=== PATIENT | male | born 1950 | race Caucasian/White ===

== ENCOUNTER 2017-04-27 13:57 | Emergency (ER) | payer OTHER ==
[~2017-04-27] VITALS: Ht 175.3 cm; Wt 100.0 kg
[~2017-04-27 13:57] MED LIST: AMLO10TA55 PO; GABA-531 PO; HYDR12.530 PO; METF850T2 PO; METO50 PO; OMEP20CA10 PO; RANI150T7 PO
[2017-04-27 14:12] LABS: GLUCOSE,POINT OF CARE 162 MG/DL (70-110)
[2017-04-27] MEDS ORDERED: NITROGLYCERIN 0.4 MG SUBLINGUAL TABLET #25 SL ONE (14:45)
[2017-04-27] MEDS ORDERED: GLUCAGON,HUMAN RECOMBINANT 1 MG VIAL IVP ONE ×2 (14:45→16:15)
[2017-04-27] MEDS ORDERED: ONDANSETRON HCL 4 MG/2 ML VIAL IVP ONE (14:45)
[2017-04-27] MEDS ORDERED: DONNATAL/LIDOCAINE/MAALOX 55 ML BOTTLE PO ONE (15:30)
[2017-04-27] MEDS ORDERED: SODIUM CHLORIDE 0.9% 1,000 ML IV ONE (18:45)
[2017-04-27] MEDS ORDERED: NALOXONE HCL 0.4 MG/ML VIAL ONE (19:13)
[2017-04-27] MEDS ORDERED: SODIUM CHLORIDE 0.9% 0 ML IV ONE (19:13)
[2017-04-27] MEDS ORDERED: FLUMAZENIL 0.1 MG/ML 5 ML VIAL IVP ONE (19:13)
[2017-04-27] MEDS ORDERED: EPINEPHrine 1:10,000 [1 MG/10 ML] SYRINGE ONE (19:13)
[2017-04-27] MEDS ORDERED: DiphenhydrAMINE HCL 50 MG/ML VIAL ONE (19:14)
[2017-04-27] MEDS ORDERED: MIDAZOLAM HCL 5 MG/ML VIAL ONE (19:14)
[2017-04-27] MEDS ORDERED: FentaNYL CITRATE-PF 100 MCG/2 ML VIAL ONE (19:14)
[2017-04-27] MEDS ORDERED: SODIUM TETRADECYL SULFATE 3% 60 MG/2 ML VIAL IVP ONE (19:14)
[2017-04-27] MEDS ORDERED: ATROPINE SULFATE 0.1 MG/ML 10 ML SYRINGE IVP ONE (19:14)
[2017-04-27 20:17] VITALS: BP 117/57
== END 2017-04-27 20:23 | disposition home or self-care (01) ==
LOC: EMS 13:59
DX: T17.228A Food in pharynx causing other injury, initial encounter (principal); E11.9 Type 2 diabetes mellitus without complications; I10 Essential (primary) hypertension; X58.XXXA Exposure to other specified factors, initial encounter; Y93.89 Activity, other specified; Y92.89 Other specified places as the place of occurrence of the external cause; Y99.8 Other external cause status
CPT/HCPCS: 43247; 71010; 82962; 96360; 96361; 96374; 96375; 99285; J1610; J2250; J2405; J3010; Z7610; J0171; J0461; J1200; J2310; J3490; J7030

== ENCOUNTER 2018-03-22 11:54 | Emergency (ER) | payer OTHER ==
[~2018-03-22] VITALS: Ht 175.3 cm; Wt 94.1 kg
[2018-03-22 12:13] LABS: GLUCOSE,POINT OF CARE 169 MG/DL (70-110)
[2018-03-22] MEDS ORDERED: LIDOCAINE HCL 5% TRANSDERMAL PATCH TD ONE (12:45)
[2018-03-22] MEDS ORDERED: KETOROLAC TROMETHAMINE 30 MG/ML VIAL IM ONE (12:45)
[2018-03-22] MEDS ORDERED: HYDROCODONE/ACETAMINOPHEN 5-325 MG TABLET PO ONE (14:00)
[2018-03-22 14:51] VITALS: BP 133/72
== END 2018-03-22 14:53 | disposition home or self-care (01) ==
LOC: EMS 11:54
DX: S32.039A Unspecified fracture of third lumbar vertebra, initial encounter for closed fracture (principal); I10 Essential (primary) hypertension; E11.9 Type 2 diabetes mellitus without complications; F17.210 Nicotine dependence, cigarettes, uncomplicated; Z79.84 Long term (current) use of oral hypoglycemic drugs; Z79.899 Other long term (current) drug therapy; W18.39XA Other fall on same level, initial encounter; Y93.89 Activity, other specified; Y92.89 Other specified places as the place of occurrence of the external cause; Y99.8 Other external cause status
CPT/HCPCS: 72100; 82962; 96372; 99284; 99406; J1885

== ENCOUNTER 2018-04-10 12:03 | Emergency (ER) | payer OTHER ==
[~2018-04-10] VITALS: Ht 175.3 cm; Wt 90.5 kg
[~2018-04-10 12:03] MED LIST changes: +METF-445 PO; -METF850T2 PO
[2018-04-10 12:20] LABS: GLUCOSE,POINT OF CARE 121 MG/DL (70-110)
[2018-04-10] MEDS ORDERED: KETOROLAC TROMETHAMINE 60 MG/2 ML VIAL IM ONE (15:00)
[2018-04-10] MEDS ORDERED: LIDOCAINE 5% TRANSDERMAL PATCH TD ONE (15:15)
[2018-04-10 15:40] VITALS: BP 142/70
== END 2018-04-10 15:41 | disposition home or self-care (01) ==
LOC: EMS 12:04
DX: S80.01XA Contusion of right knee, initial encounter (principal); M54.5 Low back pain; K59.00 Constipation, unspecified; I10 Essential (primary) hypertension; E11.9 Type 2 diabetes mellitus without complications; Z79.899 Other long term (current) drug therapy; W18.39XA Other fall on same level, initial encounter; Y93.89 Activity, other specified; Y92.89 Other specified places as the place of occurrence of the external cause; Y99.8 Other external cause status
CPT/HCPCS: 82962; 96372; 99283; J1885; 29530

== ENCOUNTER 2018-05-03 16:55 | Emergency (ER) | payer OTHER ==
[~2018-05-03] VITALS: Ht 175.3 cm; Wt 87.3 kg
[2018-05-03] MEDS ORDERED: PERTUSS(ACELL),DIPH,TET VAC/PF 0.5 ML VIAL IM ONE (18:15)
[2018-05-03] MEDS ORDERED: LIDOCAINE/PF 1% 5 ML VIAL INJ ONE (18:15)
[2018-05-03] MEDS ORDERED: BACITRACIN 0.9 GM PACKET OINTMENT TP ONE (18:45)
[2018-05-03 19:41] LABS: GLUCOSE,POINT OF CARE 124 MG/DL (70-110)
[2018-05-03 19:56] VITALS: BP 133/63
== END 2018-05-03 20:08 | disposition home or self-care (01) ==
LOC: EMS 16:56
DX: S92.514B Nondisplaced fracture of proximal phalanx of right lesser toe(s), initial encounter for open fracture (principal); S92.511B Displaced fracture of proximal phalanx of right lesser toe(s), initial encounter for open fracture; I10 Essential (primary) hypertension; E11.9 Type 2 diabetes mellitus without complications; Z79.84 Long term (current) use of oral hypoglycemic drugs; W18.39XA Other fall on same level, initial encounter; Y93.89 Activity, other specified; Y92.89 Other specified places as the place of occurrence of the external cause; Y99.8 Other external cause status
CPT/HCPCS: 12002; 73630; 82962; 90471; 90715; 99284; J3490; 29515

== ENCOUNTER 2018-05-06 13:11 | Emergency (ER) | payer OTHER ==
[~2018-05-06] VITALS: Ht 175.3 cm; Wt 102.3 kg
[2018-05-06] MEDS ORDERED: CEPH500 PO (13:30)
[2018-05-06] MEDS ORDERED: LEVO500 PO (13:30)
[2018-05-06 15:56] VITALS: BP 130/76
[2018-05-06 17:02] LABS: GLUCOSE,POINT OF CARE 101 MG/DL (70-110)
== END 2018-05-06 16:35 | disposition home or self-care (01) ==
LOC: EMS 13:12
DX: Z48.01 Encounter for change or removal of surgical wound dressing (principal); E11.9 Type 2 diabetes mellitus without complications; I10 Essential (primary) hypertension; Z79.84 Long term (current) use of oral hypoglycemic drugs; Z79.899 Other long term (current) drug therapy
CPT/HCPCS: 99283

== ENCOUNTER 2018-05-12 13:10 | Emergency (ER) | payer OTHER ==
[~2018-05-12] VITALS: Ht 175.3 cm; Wt 87.3 kg
[~2018-05-12 13:10] MED LIST changes: -AMLO10TA55 PO; +CEPH500 PO; +LEVO500 PO; -RANI150T7 PO
[2018-05-12 15:43] VITALS: BP 119/83
== END 2018-05-12 15:44 | disposition home or self-care (01) ==
LOC: EMS 13:11
DX: S91.114D Laceration without foreign body of right lesser toe(s) without damage to nail, subsequent encounter (principal); E11.9 Type 2 diabetes mellitus without complications; I10 Essential (primary) hypertension; Z79.2 Long term (current) use of antibiotics; Z79.84 Long term (current) use of oral hypoglycemic drugs; Z79.899 Other long term (current) drug therapy; Z98.890 Other specified postprocedural states; X58.XXXD Exposure to other specified factors, subsequent encounter
CPT/HCPCS: 99283

== ENCOUNTER 2018-05-14 18:11 | Emergency (ER) | payer OTHER ==
[~2018-05-14] VITALS: Ht 175.3 cm; Wt 87.3 kg
[2018-05-14 18:19] VITALS: BP 127/76
[2018-05-14] MEDS ORDERED: BACITRACIN 0.9 GM PACKET OINTMENT TP ONE (19:00)
[2018-05-14] MEDS ORDERED: ACETAMINOPHEN 500 MG TABLET PO ONE (19:00)
[2018-05-15 09:04] LABS: GLUCOSE,POINT OF CARE 105 MG/DL (70-110)
== END 2018-05-14 19:52 | disposition home or self-care (01) ==
LOC: EMS 19:17
DX: S91.301D Unspecified open wound, right foot, subsequent encounter (principal); E11.9 Type 2 diabetes mellitus without complications; I10 Essential (primary) hypertension; X58.XXXD Exposure to other specified factors, subsequent encounter
CPT/HCPCS: 99283

== ENCOUNTER 2019-06-30 12:57 | Emergency (ER) | payer OTHER ==
[~2019-06-30] VITALS: Ht 172.7 cm; Wt 90.9 kg
[~2019-06-30 12:57] MED LIST changes: +OMEP-50 PO; -OMEP20CA10 PO
[2019-06-30 13:14] LABS: GLUCOSE,POINT OF CARE 219 MG/DL (70-110)
[2019-06-30] MEDS ORDERED: MULT1CAP32 PO (13:19)
[2019-06-30] MEDS ORDERED: CHOL50004 PO (13:19)
[2019-06-30] MEDS ORDERED: SILD25 PO (13:19)
[2019-06-30] MEDS ORDERED: LOSA50TA64 PO (13:19)
[2019-06-30] MEDS ORDERED: OMEP20 PO (13:19)
[2019-06-30] MEDS ORDERED: CLOT15CR5 TP (13:19)
[2019-06-30] MEDS ORDERED: METF-960 PO (13:19)
[2019-06-30] MEDS ORDERED: AMLO5TAB9 PO (13:19)
[2019-06-30] MEDS ORDERED: CYAN100056 IM (13:19)
[2019-06-30] MEDS ORDERED: FAMO20 PO (13:19)
[2019-06-30] MEDS ORDERED: TRAM50TA4 PO (13:19)
[2019-06-30] MEDS ORDERED: IBUP-2070 PO (13:19)
[2019-06-30] MEDS ORDERED: METO50 PO (13:19)
[2019-06-30] MEDS ORDERED: LISI-661 PO (13:19)
[2019-06-30] MEDS ORDERED: DULO60CA44 PO (13:19)
[2019-06-30] MEDS ORDERED: DOCU-275 PO (13:19)
[2019-06-30] MEDS ORDERED: LIDOCAINE 5% TRANSDERMAL PATCH TD ONE (14:15)
[2019-06-30 15:45] VITALS: BP 146/82
== END 2019-06-30 16:21 | disposition home or self-care (01) ==
LOC: EMS 12:58
DX: M54.5 Low back pain (principal); E11.9 Type 2 diabetes mellitus without complications; I10 Essential (primary) hypertension; Z85.89 Personal history of malignant neoplasm of other organs and systems; Z79.899 Other long term (current) drug therapy
CPT/HCPCS: 72100